=== PATIENT | male | born 1995 | race American Indian/Alaskan Native ===

== ENCOUNTER 2019-06-23 17:34 | Emergency (ER) | payer SELFPAY ==
[2019-06-23 20:17] VITALS: BP 133/60
--- NOTE | 2019-06-23 21:03 | Event Note ---
ED Screening Note ED Screening Note: states he believes he got bit by a spider that occurred 5 days ago did not see or feel anything bite him states it is on the right hip states he has had some drainage over the last couple days states he used a paperclip to open it himself no fever PMHx none no allergies to meds had a tetanus in december 2018 This initial assessment/diagnostic orders/clinical plan/treatment(s) is/are subject to change based on patients health status, clinical progression and re- assessment by fellow clinical providers in the ED. Further treatment and workup at subsequent clinical providers discretion. Patient/guardian urged not to elope from the ED as their condition may be serious if not clinically assessed and m anaged. Initial orders include:
--- NOTE | 2019-06-23 21:10 | Emergency Department Report ---
- General Chief complaint: Skin/Abscess/Foreign Body Stated complaint: RT LEG SPIDER BITE/PAIN Time Seen by Provider: 06/23/19 20:59 Source: patient Mode of arrival: Ambulatory Limitations: No Limitations - History of Present Illness Initial comments: states he believes he got bit by a spider that occurred 5 days ago did not see or feel anything bite him states it is on the right hip states he has had some drainage over the last couple days states he used a paperclip to open it himself no fever PMHx none no allergies to meds had a tetanus in december 2018 - Related Data Previous Rx's Medication Instructions Recorded Last Taken Type Sulfamethoxazole/Trimethoprim 2 each PO BID 7 Days #28 tablet 06/23/19 Unknown Rx [Bactrim DS TAB] Allergies Allergy/AdvReac Type Severity Reaction Status Date / Time No Known Allergies Allergy Verified 06/23/19 17:36 Abscess Boil HPI - HPI Chief Complaint: Skin/Abscess/Foreign Body Stated Complaint: RT LEG SPIDER BITE/PAIN Time Seen by Provider: 06/23/19 20:59 Home Medications: Previous Rx's Medication Instructions Recorded Last Taken Type Sulfamethoxazole/Trimethoprim 2 each PO BID 7 Days #28 tablet 06/23/19 Unknown Rx [Bactrim DS TAB] Allergies/Adverse Reactions: Allergies Allergy/AdvReac Type Severity Reaction Status Date / Time No Known Allergies Allergy Verified 06/23/19 17:36 ED Review of Systems ROS: Stated complaint: RT LEG SPIDER BITE/PAIN Other details as noted in HPI Comment: All other systems reviewed and negative ED Past Medical Hx - Past Medical History Previous Medical History?: No - Surgical History Past Surgical History?: No - Medications Home Medications: Home Medications Medication Instructions Recorded Confirmed Last Taken Type Sulfamethoxazole/Trimethoprim 2 each PO BID 7 Days #28 tablet 06/23/19 Unknown Rx [Bactrim DS TAB] ED Physical Exam - General Limitations: No Limitations General appearance: alert, in no apparent distress - Head Head exam: Present: atraumatic, normocephalic - Eye Eye exam: Present: normal appearance - ENT ENT exam: Present: mucous membranes moist - Neurological Exam Neurological exam: Present: alert, oriented X3 - Psychiatric Psychiatric exam: Present: normal affect, normal mood - Skin Skin exam: Present: warm, dry, other (2 cm area of scabbing present to the right lateral thigh, there is some induration, mild erythema, no fluctuance, no opening present, music critic: AAKASH abel) ED Course Vital Signs 06/23/19 18:12 Temperature 98.5 F Pulse Rate 79 Respiratory 18 Rate Blood Pressure 133/60 O2 Sat by Pulse 99 Oximetry Critical care attestation.: If time is entered above; I have spent that time in minutes in the direct care of this critically ill patient, excluding procedure time. ED Disposition Clinical Impression: Spider bite Qualifiers: Encounter type: initial encounter Injury intent: accidental or unintentional Qualified Code(s): T63.301A - Toxic effect of unspecified spider venom, accidental (unintentional), initial encounter Cellulitis Qualifiers: Site of cellulitis: extremity Site of cellulitis of extremity: lower extremity Laterality: right Qualified Code(s): L03.115 - Cellulitis of right lower limb Disposition: DC-01 TO HOME OR SELFCARE Is pt being admited?: No Does the pt Need Aspirin: No Condition: Stable Instructions: Cellulitis (ED), Insect Bite or Sting (ED) Additional Instructions: please take medication as prescribed. clean with peroxide or alcohol three times a day. use warm compresses. keep dry and covered. follow up with a primary care doctor in the next 3-5 days. return to the emergency room for any new or worsening symptoms as discussed. Prescriptions: Sulfamethoxazole/Trimethoprim [Bactrim DS TAB] 2 each PO BID 7 Days #28 tablet Referrals: FROILAN LINDSAY MD [Staff Physician] - 3-5 Days [facility] [Outside] - 3-5 Days [facility] [Outside] - 3-5 Days Time of Disposition: 21:08 Print Language: SENEGALESE
== END 2019-06-23 23:16 | disposition home or self-care (01) ==
LOC: ED 17:34
DX: L03.115 Cellulitis of right lower limb (principal); Z79.899 Other long term (current) drug therapy; W57.XXXA Bitten or stung by nonvenomous insect and other nonvenomous arthropods, initial encounter; Y93.89 Activity, other specified; Y92.89 Other specified places as the place of occurrence of the external cause; Y99.8 Other external cause status
CPT/HCPCS: 99282